=== PATIENT | female | born 1975 | race Caucasian/White ===

== ENCOUNTER 2022-11-01 09:43 | Emergency (ER) | payer MEDICAID ==
[~2022-11-01] VITALS: Ht 162.6 cm; Wt 67.6 kg
[2022-11-01 09:49] VITALS: BP 132/81
[2022-11-01 12:29] LABS: BASOPHILS % (AUTO) 0.5 % (0.0-2.0); EOSINOPHILS # (AUTO) 0.1 K/uL (0-0.4); EOSINOPHILS % (AUTO) 1.4 % (0.0-4.0); HEMATOCRIT 43.3 % (36-48); LYMPHOCYTES # (AUTO) 1.8 K/uL (2.5-16.5); LYMPHOCYTES % (AUTO) 26.1 % (20.5-51.1); MEAN CORPUSCULAR HEMOGLOBIN 30 pg (27-31); MEAN CORPUSCULAR HGB CONC 35 g/dL (33-37); MONOCYTES # (AUTO) 0.3 K/uL (0.8-1.0); MONOCYTES % (AUTO) 4.7 % (1.7-9.3); NEUTROPHILS # (AUTO) 4.7 K/uL (1.8-7.7); NEUTROPHILS % (AUTO) 67.3 % (42.2-75.2); PLATELET COUNT (AUTO) 323 K/uL (140-450); RED BLOOD CELL COUNT(AUTO) 5.04 MIL/uL (4.20-5.40); RED CELL DISTRIBUTION WIDTH 12.4 % (11.6-13.7)
[2022-11-01 12:59] LABS: ALBUMIN 4.5 g/dL (3.4-5.0); ANION GAP 11.1 (8-16); CARBON DIOXIDE 29.6 mmol/L (21-32); CREATININE 0.6 mg/dL (0.6-1.3); POTASSIUM 3.7 mmol/L (3.5-5.1); TOTAL BILIRUBIN 1.8 mg/dL (0.0-1.0)
[2022-11-01] MEDS ORDERED: KETOROLAC 15 MG/ML VIAL IM ONE (16:05)
[2022-11-01] MEDS ORDERED: MIRABULK PO (17:06)
[2022-11-01] MEDS ORDERED: IBUP-2213 PO (17:06)
[2022-11-01] MEDS ORDERED: KETOROLAC 15 MG/ML VIAL ONE (17:06)
[2022-11-01 17:25] VITALS: BP 132/81
--- NOTE | 2022-11-01 17:27 | NUR ---
Patient discharged with v/s stable. Written and verbal after care instructions given and explained. Patient alert, oriented and verbalized understanding of instructions. Ambulatory with steady gait. All questions addressed prior to discharge. ID band removed. Patient advised to follow up with PMD. Rx of IBUPROFEN, MIRALAX (SENT) given. Patient educated on indication of medication including possible reaction and side effects. Opportunity to ask questions provided and answered. COPY OF LABS AND IMAGING
== END 2022-11-01 17:27 | disposition home or self-care (01) ==
LOC: MED 09:43
DX: R74.01 Elevation of levels of liver transaminase levels (principal); R10.33 Periumbilical pain; R10.30 Lower abdominal pain, unspecified; Z98.890 Other specified postprocedural states; Z79.899 Other long term (current) drug therapy; Z79.1 Long term (current) use of non-steroidal anti-inflammatories (NSAID)
CPT/HCPCS: 36415; 74018; 80053; 81025; 83690; 85025; 96372; 99284; J1885